=== PATIENT | female | born 1960 | race Caucasian/White ===

== ENCOUNTER 2016-06-04 21:14 | Inpatient (IN) | payer OTHER ==
[~2016-06-04] VITALS: Ht 165.1 cm; Wt 43.9 kg
--- NOTE | 2016-06-04 22:27 | ERA ---
ER Documentation Chief Complaint Date/Time DATE: 06/04/16 TIME: 22:26 Chief Complaint n/v/d x 5-6 days, LLQ abd pain and left hip pain (s/p lt hip sx 04/13/16) HPI The patient is a 55-year-old female, presenting to the ER because of nausea, vomiting, diarrhea, abdominal pain for 4 days. She vomited initially food than mucous. He denies hematochezia, hematemesis. The abdominal pain is 10/10, worse with vomiting and diarrhea. She denies dysuria, polyuria. She denies drinking or using any illicit drug, smokes a pack a day Past medical history: Seizure disorder, COPD, osteoporosis, anxiety Past surgical history: Left femur and left hip surgery ROS All systems reviewed and are negative except as per history of present illness. Medications Home Meds Reported Medications Hydrocodone/Acetaminophen (Bonham 5-325 Tablet) 1 Each Tablet, 1 EACH PO Q6 Y for PRN, TAB 06/04/16 Oxycodone Hcl* (IR) (Oxycodone Hcl*) 30 Mg Tablet, 30 MG PO Q4H Y for PAIN, TAB 06/04/16 Levetiracetam* (Keppra*) 1,000 Mg Tablet, 1000 MG PO BID, TAB 06/04/16 Allergies Allergies: Coded Allergies: Penicillins (Verified Allergy, Unknown, 06/04/16) PMhx/Soc History of Surgery: Yes (LEFT HIP REPLACEMENT SX 04/13/16) Anesthesia Reaction: No Hx Neurological Disorder: Yes (EPILEPSY) Hx Respiratory Disorders: Yes (COPD) Hx Cardiac Disorders: No Hx Psychiatric Problems: No Hx Miscellaneous Medical Probl: Yes (OSTEOPOROSIS) Hx Alcohol Use: Yes Hx Substance Use: No Hx Tobacco Use: Yes Smoking Status: Current every day smoker Physical Exam Vitals Vital Signs Date Time Temp Pulse Resp B/P Pulse Ox O2 Delivery O2 Flow Rate FiO2 06/05/16 01:23 98.0 88 20 142/91 97 Nasal Cannula 2.0 06/04/16 23:55 97.6 89 18 106/68 98 Room Air 06/04/16 21:20 97.0 76 18 117/70 99 Physical Exam Const: No acute distress. Head: Atraumatic. Eyes: Normal Conjunctiva. ENT: Normal External Ears, Nose and Mouth. Neck: Full range of motion. No meningismus. Resp: Clear to auscultation bilaterally. Cardio: Regular rate and rhythm, no murmurs. Abd: Soft, non distended, normal bowel sounds, diffuse moderate abdominal tenderness, no rigidity, rebound, CVA tenderness Skin: No petechiae or rashes. Back: No midline or flank tenderness. Ext: No cyanosis, or edema. Neur: Awake and alert. No focal deficit Psych: Normal Mood and Affect. Result Diagram: 06/04/16223906/04/162239 Results 24 hrs Laboratory Tests Test 06/04/16 21:00 06/04/16 22:40 06/04/16 22:54 06/04/16 23:45 Urine Amphetamines Screen Negative Urine Barbiturates Negative Urine Benzodiazepines Screen Negative Urine Cannabinoids Negative Urine Cocaine Screen Negative Urine Opiates Screen Negative Alanine Aminotransferase (ALT/SGPT) 38IU/L Albumin 3.4g/dl Albumin/Globulin Ratio 0.94 Alkaline Phosphatase 168IU/L Anion Gap 22 Aspartate Amino Transf (AST/SGOT) 65IU/L Basophils # 0.010^3/ul Basophils % 0.7% Blood Morphology Comment Blood Urea Nitrogen 4mg/dl Calcium Level 7.7mg/dl Carbon Dioxide Level 31mmol/L Chloride Level 97mmol/L Creatinine 0.47mg/dl Direct Bilirubin 0.00mg/dl Eosinophils # 0.210^3/ul Eosinophils % 2.9% Ethyl Alcohol Level 339.0mg/dl Globulin 3.60g/dl Glucose Level 66mg/dl Hematocrit 46.2% Hemoglobin 15.5g/dl Indirect Bilirubin 0.0mg/dl Lipase 300U/L Lymphocytes # 1.710^3/ul Lymphocytes % 28.4% Mean Corpuscular Hemoglobin 33.0pg Mean Corpuscular Hemoglobin Concent 33.5g/dl Mean Corpuscular Volume 98.5fl Mean Platelet Volume 6.6fl Monocytes # 0.510^3/ul Monocytes % 8.9% Neutrophils # 3.510^3/ul Neutrophils % 59.1% Nucleated Red Blood Cells # 0.010^3/ul Nucleated Red Blood Cells % 0.0/100WBC Platelet Count 23254^3/UL Potassium Level 2.7mmol/L Red Blood Count 4.6910^6/ul Red Cell Distribution Width 17.0% Sodium Level 147mmol/L Total Bilirubin 0.0mg/dl Total Protein 7.0g/dl White Blood Count 6.010^3/ul Bedside Urine Blood 2+ Bedside Urine Glucose (UA) Negative Bedside Urine Ketones (LAB) Negative Bedside Urine Leukocyte Esterase (L Negative Bedside Urine Nitrite (LAB) Negative Bedside Urine Protein (LAB) 1+ Bedside Urine pH (LAB) 6.0 Magnesium Level 1.5mg/dl Current Medications Medications (Trade) Dose Ordered Sig/Vickey Route PRN Reason Start Time Stop Time Status Last Admin Dose Admin Sodium Chloride (NS) 1,000 ml @ 1,000 mls/hr Q1H STAT IV 06/04/16 22:32 06/04/16 23:31 DC 06/04/16 23:11 Morphine Sulfate (morphine) 2 mg ONCE STAT IV 06/04/16 22:32 06/04/16 22:34 DC 06/04/16 23:11 Ondansetron HCl 4 mg 4 mg ONCE STAT IV 06/04/16 22:32 06/04/16 22:34 DC 06/04/16 23:11 Sodium Chloride 1,000 ml @ 1,000 mls/hr Q1H ONCE IV 06/05/16 00:00 06/05/16 00:59 DC 06/05/16 00:00 Potassium Chloride (KCl 40 MEQ/250 ML NS) 250 ml @ 62.5 mls/hr ONCE ONCE IVPB 06/05/16 00:00 06/05/16 00:03 DC Dextrose 50 ml 50 ml ONCE ONCE IV 06/05/16 00:00 06/05/16 00:01 DC 06/05/16 00:25 Ciprofloxacin/ Dextrose 200 ml @ 200 mls/hr ONCE ONCE IVPB 06/05/16 00:00 06/05/16 00:59 DC Potassium Chloride 40 meq/ Sodium Chloride 270 ml @ 67.5 mls/hr ONCE ONCE IV 06/05/16 00:05 06/05/16 04:04 06/05/16 00:25 Magnesium Sulfate (Magnesium Sulfate 2 Gm/50 ml) 50 ml @ 25 mls/hr ONCE ONCE IVPB 06/05/16 00:30 06/05/16 02:29 06/05/16 00:53 IV Flush (NS 3 ml) 3 ml PER PROTOCOL IV 06/05/16 01:30 Lorazepam (Ativan) 0.5 mg Q6H PRN IV ANXIETY 06/05/16 01:30 Ondansetron HCl (Zofran Inj) 4 mg Q6H PRN IV NAUSEA AND/OR VOMITING 06/05/16 01:30 Nitroglycerin (Nitroglycerin (Sl Tab) 0.4 Mg) 1 tab Q5M PRN SL CHEST PAIN 06/05/16 01:30 Acetaminophen (Tylenol Tab) 650 mg Q6H PRN PO PAIN LEVEL 1-3 OR FEVER 06/05/16 01:30 Morphine Sulfate (morphine) 2 mg Q4H PRN IV PAIN LEVEL 7-10 06/05/16 01:30 Pantoprazole (Protonix Tab) 40 mg DAILY@06 PO 06/05/16 06:00 Enoxaparin Sodium (Lovenox) 40 mg DAILY SC 06/05/16 09:00 Albuterol/ Ipratropium (Duoneb) 3 ml Q4H RESP THERAPY HHN 06/05/16 05:00 Albuterol/ Ipratropium 3 ml 3 ml Q2H RESP THERAPY PRN HHN SHORTNESS OF BREATH 06/05/16 01:30 Ciprofloxacin/ Dextrose 200 ml @ 200 mls/hr Q12 IVPB 06/05/16 09:00 Metronidazole (Flagyl 500 Mg (Pmx)) 100 ml @ 100 mls/hr Q8 IVPB 06/05/16 06:00 Levetiracetam (Keppra) 1,000 mg BID PO 06/05/16 09:00 UNV Procedures/[place] [id number] Radiology Main Line: [phone] DIAGNOSTIC IMAGING REPORT Patient: MARCELO LYNN : 1960 Age: 55 Sex: F MR #: [id number] DOS: 06/04/162231 Ordering MD: MACI CHRISTINE MD Location: E/R Room/Bed: PROCEDURE: CHEST - 1 VIEW CLINICAL INDICATION: 55-year-old female with chest/abdominal pain. TECHNIQUE: A single frontal AP upright view of the chest was performed portably. The images were reviewed on a PACS workstation. COMPARISON: CT abdomen/pelvis June 04, 2016. FINDINGS: The cardiomediastinal silhouette is within normal limits. The thoracic aortic arch is mildly calcified. Chronic lung changes are present. There is no evidence for an infiltrate. There is no evidence for congestive heart failure. There is no evidence for pneumothorax. There are old healed fracture deformities involving the right seventh, eighth and ninth ribs in the mid axillary line and left eighth and ninth ribs in the mid axillary line. IMPRESSION: 1. Calcified thoracic aortic arch. 2. Chronic lung changes. 3. Old bilateral rib fracture deformities. .Aravind Lewis MD, MD Date Time Electronically viewed and signed by .Aravind Lewis MD, MD on 06/04/2016 23:50 .M/ CC: MACI CHRISTINE MD [place] [id number] Radiology Main Line: [phone] DIAGNOSTIC IMAGING REPORT Patient: MARCELO LYNN : 1960 Age: 55 Sex: F MR #: [id number] DOS: 06/04/162 Ordering MD: MACI CHRISTINE MD Location: E/R Room/Bed: PROCEDURE: CT abdomen and pelvis without contrast. CLINICAL INDICATION: Abdominal pain left lower quadrant. History of left hip surgery 04/13/2016 TECHNIQUE: CT scan of the abdomen and pelvis without contrast was performed. Sagittal and coronal reformatted images were obtained from the axial source images. CTDI = 15.11 mGy; DLP = 693.44 mGy-cm COMPARISON: None available. FINDINGS: Visualized lower thorax: Multiple tree in bud opacities of the lower lobes suggest bronchiolitis with probable mild emphysema. A small bowel within the left lower lobe is noted. There is no evidence for pleural effusion. Liver, gallbladder, pancreas and spleen: Borderline hepatomegaly the cranial caudal dimension of the liver 19 cm. Severe low attenuation is consistent with fatty deposition, the hepatic contour is normal. There is no evidence for a liver mass or ductal dilatation. The gallbladder is contracted around multiple gallstones with there is no adjacent inflammation to suggest cholecystitis. No common bile duct abnormality is demonstrated. The pancreas is unremarkable. The spleen is normal in size. Adrenal glands and genitourinary system: The adrenal glands are normal bilaterally. The kidneys are normal and size, contour and attenuation with no evidence for masses, calculi or hydronephrosis. The ureters are unremarkable. No urinary bladder abnormality is demonstrated. The uterus appears atrophic. There is no evidence of ovarian or adnexal mass. No free fluid is present within the cul-de-sac. Gastrointestinal system: A tiny sliding hiatal hernia suggested remainder the study is unremarkable. There is no evidence of small bowel ileus or obstruction , some increased density in the appearance of residual enteric contrast media is seen in the distal ileum without wall thickening to suggest enteritis. The appendix and surrounding fat are within the limits of normal. There is diffuse thickening of the colonic wall with some fat deposition in the colonic mucosa seen from the cecum through the sigmoid colon, findings raising concern for diffuse nonspecific colitis. There is no evidence of pneumatosis in the fat surrounding the colon is preserved. The area of the rectum is unremarkable. There is no evidence for colitis or diverticulitis. Peritoneum, retroperitoneum, lymph nodes and vessels: The abdominal aorta is normal in caliber. There is moderate aortic and iliac system atherosclerotic calcification. The inferior vena cava is unremarkable. There is no evidence for adenopathy or mass. There is no ascites. Osseous structures and musculoskeletal findings: Intramedullary bobo and screw through an incompletely healed left proximal humerus fracture are present with some heterotopic ossification about the left hip. Levoscoliosis with the apex at L2 is noted with some degenerative disk disease and spondylosis of the lumbar spine. There is no evidence of acute fracture, lytic or blastic lesion. No muscular abnormality or soft tissue pathology is present. RPTAT:HJJR IMPRESSION: 1. Collapsed colonic lumen with mild colonic wall thickening from the cecum through the sigmoid segment raises concern for nonspecific colitis without pneumatosis or stranding of the adjacent colonic fat. There is no evidence of diverticulitis. 2. Heterotopic ossification with findings of partial but incomplete healing of the internally fixated proximal left femoral fracture. 3. Cholelithiasis without cholecystitis. 4. Borderline hepatomegaly with severe hepatic steatosis. 5. Multiple tree in bud opacities of the visualized lung bases likely bronchiolitis. 6. Atherosclerotic calcification of the aorta and iliac systems. Physician Jessi Date Time Electronically viewed and signed by Campos Salvador Physician on 06/04/2016 23:15 JR/ CC: MACI CHRISTINE MD MEDICAL MAKING DECISION: The patient is a 55-year-old female, presenting with acute colitis, acute alcohol intoxication, acute hypokalemia, acute magnesium, acute dehydration cholelithiasis. She was treated with 2 L normal saline for acute dehydration, morphine 2 mg IV for pain, Zofran 4 mg IV for nausea, potassium chloride 40 mEq IV for low potassium and 1 amp of D50 IV for acute hypoglycemia, Cipro IV and Flagyl IV for acute colitis and magnesium sulfate 2 mg IV for acute hypomagnesemia. The differential diagnoses considered include but are not limited to cholelithiasis, cholecystitis, cystitis, pancreatitis, hepatitis, gastritis, peptic ulcer disease, gastric ulcer, appendicitis, diverticulitis, cholangitis, choledocholithiasis, partial small bowel obstruction. Critical Care: Time: 35 minutes excluding all billable procedures. Treatments/Evaluations: Close monitoring and treatment of unstable vital signs, cardiorespiratory, and neurologic status, while maintaining tight balance of fluid, respiratory, and cardiac interventions. Departure Diagnosis: Primary Impression: Acute colitis Additional Impressions: Alcohol intoxication Hypokalemia Hypomagnesemia Dehydration Cholelithiasis Abnormal LFTs Condition: Stable Comments I discussed the findings with the patient. I discussed the patient with the hospitalist Dr. Romero who was made aware of the lab, the treatment, the patient condition. The patient is admitted to telemetry at 12:35 AM MACI CHRISTINE MD Jun 04, 2016 22:27
[2016-06-04] MEDS ORDERED: ONDANSETRON 4 MG INJ IV STA (22:32)
[2016-06-04] MEDS ORDERED: SOD CHLORIDE 0.9% 1,000 ML IV STA (22:32)
[2016-06-04] MEDS ORDERED: morphine 2 MG INJ IV STA (22:32)
[2016-06-04] MEDS ORDERED: LEVE100018 PO (22:42)
[2016-06-04] MEDS ORDERED: OXYC30TA PO (22:43)
[2016-06-04] MEDS ORDERED: HYDR-906 PO (22:43)
[2016-06-04 22:52] LABS: URINE BLOOD (Dip) POC 2+ (NEGATIVE)
[2016-06-04 23:05] LABS: BASOPHILS % 0.7 % (0.0-2.0); EOSINOPHILS # 0.2 10^3/ul (0.0-0.5); EOSINOPHILS % 2.9 % (0.0-7.0); HEMATOCRIT 46.2 % (37.0-47.0); HEMOGLOBIN 15.5 g/dl (12.0-16.0); LYMPHOCYTES # 1.7 10^3/ul (0.8-2.9); LYMPHOCYTES % 28.4 % (15.0-51.0); MEAN CORPUSCULAR HGB CONC 33.5 g/dl (32.0-37.0); MEAN CORPUSCULAR VOLUME 98.5 fl (82.0-101.0); MEAN PLATELET VOLUME 6.6 fl (7.4-10.4); MONOCYTE # 0.5 10^3/ul (0.3-0.9); MONOCYTES % 8.9 % (0.0-11.0); NEUTROPHIL # 3.5 10^3/ul (1.6-7.5); NEUTROPHILS % 59.1 % (39.0-77.0); PLATELET COUNT 308 10^3/UL (140-440); RED BLOOD COUNT 4.69 10^6/ul (4.20-5.40)
[2016-06-04 23:08] LABS: CONDITION 1; LH ANALYZER COMMENTS 1
[2016-06-04 23:10] LABS: ALBUMIN 3.4 g/dl (3.3-4.9)
[2016-06-04 23:13] LABS: CREATININE 0.47 mg/dl (0.44-1.00)
[2016-06-04 23:14] LABS: ALBUMIN/GLOBULIN RATIO 0.94; CALCIUM 7.7 mg/dl (8.4-10.2)
--- NOTE | 2016-06-04 23:16 | RADRPT ---
PROCEDURE: CT abdomen and pelvis without contrast. CLINICAL INDICATION: Abdominal pain left lower quadrant. History of left hip surgery 04/13/2016 TECHNIQUE: CT scan of the abdomen and pelvis without contrast was performed. Sagittal and coronal reformatted images were obtained from the axial source images. CTDI = 15.11 mGy; DLP = 693.44 mGy-c m COMPARISON: None available. FINDINGS: Visualized lower thorax: Multiple tree in bud opacities of the lower lobes suggest bronchiolitis wi th probable mild emphysema. A small bowel within the left lower lobe is noted. There is no evidenc e for pleural effusion. Liver, gallbladder, pancreas and spleen: Borderline hepatomegaly the cranial caudal dimension of th e liver 19 cm. Severe low attenuation is consistent with fatty deposition, the hepatic contour is n ormal. There is no evidence for a liver mass or ductal dilatation. The gallbladder is contracted a round multiple gallstones with there is no adjacent inflammation to suggest cholecystitis. No commo n bile duct abnormality is demonstrated. The pancreas is unremarkable. The spleen is normal in siz e. Adrenal glands and genitourinary system: The adrenal glands are normal bilaterally. The kidneys are normal and size, contour and attenuation with no evidence for masses, calculi or hydronephrosis. T he ureters are unremarkable. No urinary bladder abnormality is demonstrated. The uterus appears at rophic. There is no evidence of ovarian or adnexal mass. No free fluid is present within the cul-d e-sac. Gastrointestinal system: A tiny sliding hiatal hernia suggested remainder the study is unremarkable . There is no evidence of small bowel ileus or obstruction, some increased density in the appearanc e of residual enteric contrast media is seen in the distal ileum without wall thickening to suggest enteritis. The appendix and surrounding fat are within the limits of normal. There is diffuse thic kening of the colonic wall with some fat deposition in the colonic mucosa seen from the cecum throug h the sigmoid colon, findings raising concern for diffuse nonspecific colitis. There is no evidence of pneumatosis in the fat surrounding the colon is preserved. The area of the rectum is unremarkab le. There is no evidence for colitis or diverticulitis. Peritoneum, retroperitoneum, lymph nodes and vessels: The abdominal aorta is normal in caliber. The re is moderate aortic and iliac system atherosclerotic calcification. The inferior vena cava is unr emarkable. There is no evidence for adenopathy or mass. There is no ascites. Osseous structures and musculoskeletal findings: Intramedullary bobo and screw through an incomplete ly healed left proximal humerus fracture are present with some heterotopic ossification about the le ft hip. Levoscoliosis with the apex at L2 is noted with some degenerative disk disease and spondylo sis of the lumbar spine. There is no evidence of acute fracture, lytic or blastic lesion. No muscu lar abnormality or soft tissue pathology is present. RPTAT:HJJR IMPRESSION: 1. Collapsed colonic lumen with mild colonic wall thickening from the cecum through the sigmoid seg ment raises concern for nonspecific colitis without pneumatosis or stranding of the adjacent colonic fat. There is no evidence of diverticulitis. 2. Heterotopic ossification with findings of partial but incomplete healing of the internally fixat ed proximal left femoral fracture. 3. Cholelithiasis without cholecystitis. 4. Borderline hepatomegaly with severe hepatic steatosis. 5. Multiple tree in bud opacities of the visualized lung bases likely bronchiolitis. 6. Atherosclerotic calcification of the aorta and iliac systems. Physician Jessi Date Time Electronically viewed and signed by Physician Jessi on 06/04/2016 23:15 /
[2016-06-04 23:23] LABS: POTASSIUM 2.7 mmol/L (3.5-5.1)
[2016-06-04 23:47] LABS: BARBITURATES Negative (NEGATIVE)
[2016-06-04 23:50] LABS: BENZODIAZEPINES Negative (NEGATIVE); CANNABINOIDS Negative (NEGATIVE); COCAINE Negative (NEGATIVE); OPIATES Negative (NEGATIVE)
--- NOTE | 2016-06-04 23:50 | RADRPT ---
PROCEDURE: CHEST - 1 VIEW CLINICAL INDICATION: 55-year-old female with chest/abdominal pain. TECHNIQUE: A single frontal AP upright view of the chest was performed portably. The images were reviewed on a PACS workstation. COMPARISON: CT abdomen/pelvis June 04, 2016. FINDINGS: The cardiomediastinal silhouette is within normal limits. The thoracic aortic arch is mildly calcif ied. Chronic lung changes are present. There is no evidence for an infiltrate. There is no eviden ce for congestive heart failure. There is no evidence for pneumothorax. There are old healed fractur e deformities involving the right seventh, eighth and ninth ribs in the mid axillary line and left e ighth and ninth ribs in the mid axillary line. IMPRESSION: 1. Calcified thoracic aortic arch. 2. Chronic lung changes. 3. Old bilateral rib fracture deformities. .Aravind Lewis MD, Date Time Electronically viewed and signed by .Aravind Lewis MD, on 06/04/2016 23:50 .M/
[2016-06-05] VITALS (11 sets, daily range): BP systolic 118–145; BP diastolic 72–90; PULSE 91–105; RESP 17–22; TEMP 98; Ht 165.1 cm; Wt 43.9 kg
[2016-06-05] MEDS ORDERED: SOD CHLORIDE 0.9% 1,000 ML IV ONE
[2016-06-05] MEDS ORDERED: CIPROFLOXACIN 400MG/D5W 200 ML IVPB ONE
[2016-06-05] MEDS ORDERED: POTASSIUM CHLORIDE 250 ML IVPB ONE
[2016-06-05] MEDS ORDERED: DEXTROSE 50% 50 ML SYRINGE IV ONE
[2016-06-05] MEDS ORDERED: POTASSIUM CHLORIDE 40 MEQ in SOD CHLORIDE 0.9% 250 ML IV ONE (00:05)
[2016-06-05] MEDS ORDERED: MAGNESIUM SULFATE 2 GM/50 ML 50 ML IVPB ONE (00:30)
--- NOTE | 2016-06-05 01:22 | HP ---
Date/Time of Note Date/Time of Note DATE: 06/05/16 TIME: 01:13 Assessment/Plan VTE Prophylaxis VTE Prophylaxis Intervention: LMWH Assessment/Plan Assessment/Plan 55 yo female with a past medical history of ETOH abuse, COPD, anxiety, Seizure d /o, osteoporosis, who presents with 8 day history of worsening abdominal pain. 1. Abdominal pain - 2/2 to diffuse colitis - infectious vs chronic - will admit the patient to telemetry, continue with cipro/flagyl, IVF, clear liquids, check stool culture, ova/parasites, fecal leukocytes 2. ETOH abuse - social sciences lecturer consult, banana bag, prn ativan 3. Seizure d/o - keppra, seizure precautions 4. COPD - acute exacerbation - start duonebs prn 5. Anxiety - prn ativan 6. Osteoporosis - continue with os-bryan 7. hypokalemia - replete - intrinsic losses from diarrhea 8. hypomagnesemia - replete 9. GI ppx - protonix 10. DVT ppx - lovenox answered all of her questions. as per clinical course. this history and physical took greater then 45 minutes to complete HPI/ROS Admit Date/Time Admit Date/Time 06/05/2016, 1:13 am Hx of Present Illness 55 yo female with a past medical history of ETOH abuse, COPD, anxiety, Seizure d /o, osteoporosis, who presents with 8 day history of worsening abdominal pain. She states that her abdominal pain is diffuse, 10/10 in intensity, stabbing in nature, intermittent, associated with nausea, > 10 episodes of bilious vomitus, > 10 episodes of NB diarrhea, and fevers/chills. She has a lot of sick contacts at home. She also complains of a productive cough, with yellowish sputum. Complains of generalized weakness and malaise with some shortness of breath. No chest pain, dizziness, headaches, urinary irregularities, loss of consciousness , or other constitutional symptoms. Upon further questioning, the patient did have 8-9 beers today. ED course: pain medications, cipro/flagyl, magnesium, IVF ROS 14 point review of systems completed, please refer to HPI for any positive findings PMH/Family/Social Past Medical History seizure d/o, anxiety, osteoporosis, COPD Past Surgical History left and right arm repair Family History Significant Family History: COPD, lung disease Social History Alcohol Use: heavy (6-8 beers 2-3 x week) Smoking Status: Current every day smoker (1 ppd x 10 years) Drug Use: marijuana Exam/Review of Systems Vital Signs Vitals Vital Signs Date Time Temp Pulse Resp B/P Pulse Ox O2 Delivery O2 Flow Rate FiO2 06/04/16 23:55 97.6 89 18 106/68 98 Room Air Exam Exam Gen Claribel: mild to moderate distress 2/2 to abdominal pain, AAOx4 HEENT: NC/AT, PERRLA, EOMI, no pharyngeal erythema, no tonsillar exudates, no lymphadenopathy, no JVD, no carotid bruits, halitosis 2/2 ETOH NECK: supple, no thyromegaly THORAX: symmetrical, no obvious deformities, barrel chest CV: S1S2, RRR, no M/G/R Lungs: scattered rhonchi with inspiratory/expiratory wheezing, no crackles appreciated Abd: soft, TTP diffusely/ND, +hyperactive BS, no rebound, no guarding, neg HSM EXT: no edema, no ecchymosis, no clubbing, FROM Neuro: CN II-XII grossly intact, no focal deficits Psych: fair mood and affect Skin: C/D/I Labs Result Diagram: 06/04/16223906/04/162239 Medications Medications Current Medications Potassium Chloride 40 meq/ Sodium Chloride 270 ml @ 67.5 mls/hr ONCE ONCE IV Last administered on 06/05/16 00:25; Admin Dose 67.5 MLS/HR; Start 06/05/16 at 00:05; Stop 06/05/16 at 04:04 Magnesium Sulfate (Magnesium Sulfate 2 Gm/50 ml) 50 ml @ 25 mls/hr ONCE ONCE IVPB Last administered on 06/05/16 00:53; Admin Dose 25 MLS/HR; Start at 00:30; Stop 06/05/16 at 02:[address] abd/pelvis IMPRESSION: 1. Collapsed colonic lumen with mild colonic wall thickening from the cecum through the sigmoid segment raises concern for nonspecific colitis without pneumatosis or stranding of the adjacent colonic fat. There is no evidence of diverticulitis. 2. Heterotopic ossification with findings of partial but incomplete healing of the internally fixated proximal left femoral fracture. 3. Cholelithiasis without cholecystitis. 4. Borderline hepatomegaly with severe hepatic steatosis. 5. Multiple tree in bud opacities of the visualized lung bases likely bronchiolitis. 6. Atherosclerotic calcification of the aorta and iliac systems. CXR IMPRESSION: 1. Calcified thoracic aortic arch. 2. Chronic lung changes. 3. Old bilateral rib fracture deformities. MARY FAY MD Jun 05, 2016 01:22
[2016-06-05] MEDS ORDERED: ACETAMINOPHEN 325 MG TAB PO PRN (01:30)
[2016-06-05] MEDS ORDERED: NACL 0.9% 3 ML SYG IV SCH (01:30)
[2016-06-05] MEDS ORDERED: NITROGLYCERIN (SL) 0.4 MG TAB SL PRN (01:30)
[2016-06-05] MEDS ORDERED: ALBUTEROL/IPRATROPIUM (NEB) 3 ML AMP HHN PRN (01:30)
[2016-06-05] MEDS: morphine 2 MG INJ IV PRN ×5 (02:37→22:55)
[2016-06-05] MEDS: PANTOPRAZOLE (EC) 40 MG TAB PO SCH ×2 (05:54→09:05)
[2016-06-05] MEDS: metroNIDAZOLE 500 MG/NS (PMX) 100 ML IVPB SCH ×3 (05:54→21:45)
[2016-06-05] MEDS: ONDANSETRON 4 MG INJ IV PRN ×2 (08:00→18:54)
[2016-06-05] MEDS: LEVETIRACETAM 500 MG TAB PO SCH ×2 (09:05→21:40)
[2016-06-05] MEDS: CIPROFLOXACIN 400MG/D5W 200 ML IVPB SCH ×2 (09:06→21:45)
[2016-06-05] MEDS: ENOXAPARIN 40 MG/0.4 ML SYG SC SCH (09:15)
[2016-06-05] MEDS: ALBUTEROL/IPRATROPIUM (NEB) 3 ML AMP HHN SCH ×4 (09:46→21:54)
[2016-06-05 10:20] LABS: CREATINE KINASE 47 IU/L (23-200)
[2016-06-05 10:25] LABS: CHOL/HDL RATIO 1.7 RATIO
[2016-06-05 10:29] LABS: CK-MB 1.75 ng/ml (0.0-2.4)
[2016-06-05 10:42] LABS: TROPONIN-I < 0.010 ng/ml (0.00-0.12)
[2016-06-05] MEDS ORDERED: METHYLPREDNISOLONE 125 MG INJ IV ONE (12:00)
[2016-06-05] MEDS ORDERED: FUROSEMIDE 20 MG INJ IV ONE (12:00)
[2016-06-05] MEDS: SALMETEROL/FLUTICASONE 250/50 INHA INH SCH ×2 (13:27→21:45)
[2016-06-05] MEDS ORDERED: HYDROCODONE/APAP (7.5/325) TAB PO PRN (14:30)
[2016-06-05] MEDS: HYDROCODONE/APAP (5/325) TAB PO PRN ×2 (15:17→21:41)
[2016-06-05] MEDS: MULTIVITAMINS 10 ML, THIAMINE 100 MG, FOLIC ACID 1 MG in SOD CHLORIDE 0.9% 1,000 ML IVPB SCH (16:02)
[2016-06-05 18:09] LABS: THYROID STIMULATING HORMONE 2.2 MIU/L (0.465-4.680)
[2016-06-05] MEDS: METHYLPREDNISOLONE 125 MG INJ IV SCH (21:42)
[2016-06-05] MEDS: LORAZEPAM 2 MG INJ IV PRN (22:53)
[2016-06-06] VITALS (12 sets, daily range): BP systolic 126–138; BP diastolic 77–84; PULSE 90–101; RESP 15–20
[2016-06-06] MEDS: ALBUTEROL/IPRATROPIUM (NEB) 3 ML AMP HHN SCH ×6 (01:47→21:57)
[2016-06-06] MEDS: morphine 2 MG INJ IV PRN ×2 (04:27→09:18)
[2016-06-06] MEDS: ONDANSETRON 4 MG INJ IV PRN ×2 (04:27→11:55)
[2016-06-06 06:20] LABS: ADD SCAN DIFF NO
[2016-06-06 06:42] LABS: BASOPHILS % 0.2 % (0.0-2.0); HEMATOCRIT 36.8 % (37.0-47.0); HEMOGLOBIN 12.2 g/dl (12.0-16.0); LYMPHOCYTES # 0.7 10^3/ul (0.8-2.9); MEAN CORPUSCULAR HEMOGLOBIN 32.5 pg (29.0-33.0); MEAN CORPUSCULAR HGB CONC 33.2 g/dl (32.0-37.0); MEAN CORPUSCULAR VOLUME 98.1 fl (82.0-101.0); MONOCYTE # 0.6 10^3/ul (0.3-0.9); MONOCYTES % 11.7 % (0.0-11.0); NEUTROPHIL # 3.5 10^3/ul (1.6-7.5); NEUTROPHILS % 73.7 % (39.0-77.0); PLATELET COUNT 236 10^3/UL (140-415); RED BLOOD COUNT 3.75 10^6/ul (4.20-5.40); RED CELL DISTRIBUTION WIDTH 15.2 % (11.5-14.5); WHITE BLOOD COUNT 4.8 10^3/ul (4.8-10.8)
[2016-06-06] MEDS: METHYLPREDNISOLONE 125 MG INJ IV SCH ×3 (06:49→21:59)
[2016-06-06] MEDS: metroNIDAZOLE 500 MG/NS (PMX) 100 ML IVPB SCH ×3 (06:49→21:59)
[2016-06-06 06:53] LABS: CREATININE 0.4 mg/dl (0.44-1.00)
[2016-06-06 06:54] LABS: CALCIUM 7.5 mg/dl (8.4-10.2)
[2016-06-06] MEDS: LEVETIRACETAM 500 MG TAB PO SCH ×2 (09:20→21:59)
[2016-06-06] MEDS: MULTIVITAMINS 10 ML, THIAMINE 100 MG, FOLIC ACID 1 MG in SOD CHLORIDE 0.9% 1,000 ML IVPB SCH (09:20)
[2016-06-06] MEDS: CIPROFLOXACIN 400MG/D5W 200 ML IVPB SCH ×2 (09:20→21:59)
[2016-06-06] MEDS: SALMETEROL/FLUTICASONE 250/50 INHA INH SCH ×2 (09:21→22:41)
[2016-06-06] MEDS: ENOXAPARIN 40 MG/0.4 ML SYG SC SCH (09:30)
[2016-06-06] MEDS: HYDROmorphONE 1 MG/ML SYG IV PRN ×4 (12:58→22:08)
[2016-06-06] MEDS: LORAZEPAM 2 MG INJ IV PRN ×2 (12:58→19:07)
[2016-06-06] MEDS ORDERED: ACETAMINOPHEN 1000MG/100ML IV 100 ML IVPB ONE (13:00)
[2016-06-06] MEDS: METHYLNALTREXONE 12 MG/0.6 ML VIAL SC SCH (13:48)
--- NOTE | 2016-06-06 17:03 | PN ---
Date/Time of Note Date/Time of Note DATE: 06/06/16 TIME: 16:59 Assessment/Plan VTE Prophylaxis VTE Prophylaxis Intervention: heparin Lines/Catheters IV Catheter Type (from Nrsg): Peripheral IV Assessment/Plan Assessment/Plan 55 yo female with a past medical history of ETOH abuse, COPD, anxiety, Seizure d /o, osteoporosis, who presents with 8 day history of worsening abdominal pain. 1. Abdominal pain - 2/2 to diffuse colitis 2. ETOH abuse 3. Seizure d/o 4. COPD - acute exacerbation - improved 5. Chronic Pain and Anxiety d/o 6. Osteoporosis PLAN: * Continue IV abx * Continue IVF * Advance diet to clears / advance in am if tolerated * Continue duonebs / intravenous steroids * PT eval * GI ppx - protonix * DVT ppx - lovenox Subjective 24 Hr Interval Summary Free Text/Dictation abd pain and nausea improved Patient asking for food Exam/Review of Systems Vital Signs Vitals Vital Signs Date Time Temp Pulse Resp B/P Pulse Ox O2 Delivery O2 Flow Rate FiO2 06/06/16 15:56 98.3 95 19 127/80 98 06/06/16 12:24 Nasal Cannula 3.0 06/05/16 17:02 32 Intake and Output 06/05/16 06/05/16 06/06/16 15:00 23:00 07:00 Intake Total 820 ml 350 ml Output Total 200 ml Balance 620 ml 350 ml Exam Constitutional: alert, frail, oriented Psych: anxiety Head: normocephalic Eyes: PERRL Respiratory: diminished breath sounds Cardiovascular: regular rate and rhythm, No murmurs/extra sounds Gastrointestinal: bowel sounds, non-tender, soft Extremities: No edema Neurological: lethargic Results Result Diagram: 06/06/16 0540 06/06/16 0540 Results 24 hrs Laboratory Tests Test 06/06/16 05:40 Anion Gap 15 # Basophils # 0.0 Basophils % 0.2 Blood Urea Nitrogen 8 Calcium Level 7.5 L Carbon Dioxide Level 29 Chloride Level 98 Creatinine 0.40 L Eosinophils # 0.0 Eosinophils % 0.0 Glucose Level 178 # Hematocrit 36.8 #L Hemoglobin 12.2 # Lymphocytes # 0.7 L Lymphocytes % 14.0 L Magnesium Level 1.3 L Mean Corpuscular Hemoglobin 32.5 Mean Corpuscular Hemoglobin Concent 33.2 Mean Corpuscular Volume 98.1 Mean Platelet Volume 9.0 # Monocytes # 0.6 Monocytes % 11.7 H Neutrophils # 3.5 Neutrophils % 73.7 Nucleated Red Blood Cells # 0.0 Nucleated Red Blood Cells % 0.0 Platelet Count 236 Potassium Level 3.0 L Red Blood Count 3.75 #L Red Cell Distribution Width 15.2 H Sodium Level 139 White Blood Count 4.8 Medications Medications Current Medications Lorazepam (Ativan) 0.5 mg Q6H PRN IV ANXIETY Last administered on 06/06/16 12: 58; Admin Dose 0.5 MG; Start 06/05/16 at 01:30 Ondansetron HCl (Zofran Inj) 4 mg Q6H PRN IV NAUSEA AND/OR VOMITING Last administered on 06/06/16 11:55; Admin Dose 4 MG; Start 06/05/16 at 01:30 Nitroglycerin (Nitroglycerin (Sl Tab) 0.4 Mg) 1 tab Q5M PRN SL CHEST PAIN; Start 06/05/16 at 01:30 Acetaminophen (Tylenol Tab) 650 mg Q6H PRN PO PAIN LEVEL 1-3 OR FEVER; Start at 01:30 Pantoprazole (Protonix Tab) 40 mg DAILY@06 PO Last administered on 06/05/16 09 :05; Admin Dose 40 MG; Start 06/05/16 at 06:00 Enoxaparin Sodium 40 mg 40 mg DAILY SC Last administered on 06/06/16 09:30; Admin Dose 40 MG; Start 06/05/16 at 09:00 Ciprofloxacin/ Dextrose 200 ml @ 200 mls/hr Q12 IVPB Last administered on 06/06 09:20; Admin Dose 200 MLS/HR; Start 06/05/16 at 09:00 Metronidazole (Flagyl 500 Mg (Pmx)) 100 ml @ 100 mls/hr Q8 IVPB Last administered on 06/06/16 15:01; Admin Dose 100 MLS/HR; Start 06/05/16 at 06:00 Levetiracetam (Keppra) 1,000 mg BID PO Last administered on 06/06/16 09:20; Admin Dose 1,000 MG; Start 06/05/16 at 09:00 Salmeterol Xinafoate/ Fluticasone (Advair 250/50 Diskus) 1 inh BID INH Last administered on 06/06/16 09:21; Admin Dose 1 INH; Start 06/05/16 at 12:00 Methylprednisolone Sodium Succinate 60 mg 60 mg Q8 IV Last administered on 06/06 15:02; Admin Dose 60 MG; Start 06/05/16 at 22:00 Multivitamins/ Thiamine HCl/ Folic Acid/Sodium Chloride (Mvi-12 Adult/ Vitamin B1/Folic Acid/NS) 1,011.2 ml @ 80 mls/hr DAILY@09 IVPB Last administered on 09:20; Admin Dose 80 MLS/HR; Start 06/05/16 at 15:00 Methylnaltrexone [place] (Relistor) 12 mg Q2D@09 SC Last administered on 13:48; Admin Dose 12 MG; Start 06/06/16 at 13:00 Hydromorphone HCl (Dilaudid) 0.5 mg Q3H PRN IV PAIN Last administered on 16:01; Admin Dose 0.5 MG; Start 06/06/16 at 12:30 FREDI CLEMENTE Jun 06, 2016 17:03
[2016-06-07] VITALS (12 sets, daily range): BP systolic 117–158; BP diastolic 77–94; PULSE 89–99; RESP 15–19
[2016-06-07] MEDS: HYDROmorphONE 1 MG/ML SYG IV PRN ×9 (00:40→23:12)
[2016-06-07] MEDS: LORAZEPAM 2 MG INJ IV PRN ×3 (01:09→20:02)
[2016-06-07] MEDS: ALBUTEROL/IPRATROPIUM (NEB) 3 ML AMP HHN SCH (02:25)
[2016-06-07] MEDS: METHYLPREDNISOLONE 125 MG INJ IV SCH ×3 (06:44→21:46)
[2016-06-07] MEDS: PANTOPRAZOLE (EC) 40 MG TAB PO SCH (06:44)
[2016-06-07] MEDS: metroNIDAZOLE 500 MG/NS (PMX) 100 ML IVPB SCH ×2 (06:45→13:10)
[2016-06-07 07:08] LABS: HEMATOCRIT 37.2 % (37.0-47.0); HEMOGLOBIN 11.9 g/dl (12.0-16.0)
[2016-06-07] MEDS: LEVETIRACETAM 500 MG TAB PO SCH ×2 (09:12→20:02)
[2016-06-07] MEDS: CIPROFLOXACIN 400MG/D5W 200 ML IVPB SCH ×2 (09:12→23:44)
[2016-06-07] MEDS: SALMETEROL/FLUTICASONE 250/50 INHA INH SCH ×2 (09:12→21:45)
[2016-06-07] MEDS: MULTIVITAMINS 10 ML, THIAMINE 100 MG, FOLIC ACID 1 MG in SOD CHLORIDE 0.9% 1,000 ML IVPB SCH (09:12)
[2016-06-07] MEDS: ENOXAPARIN 40 MG/0.4 ML SYG SC SCH (09:30)
[2016-06-07] MEDS ORDERED: MAGNESIUM SULFATE 3 GM in SOD CHLORIDE 0.9% 100 ML IVPB ONE (13:30)
--- NOTE | 2016-06-07 13:45 | PDOCDIS ---
Discharge Instructions CONDITION Patient Condition: Good HOME CARE INSTRUCTIONS: Special Diet: Soft ACTIVITY: Activity Restrictions: Special Program FOLLOW UP/APPOINTMENTS Appointments Follow-up with healthcare partner contracted etl informatica architect as outpatient ADILIA ROLAND MD Jun 07, 2016 13:45
[2016-06-07] MEDS ORDERED: SOD CHLORIDE 0.9% IVPB ONE (14:30)
[2016-06-07] MEDS ORDERED: MAGNESIUM SULFATE IVPB ONE (14:30)
[2016-06-07] MEDS ORDERED: POTASSIUM CHLORIDE IVPB ONE (14:30)
[2016-06-07 14:31] LABS: HEMATOCRIT 38.7 % (37.0-47.0); HEMOGLOBIN 12.5 g/dl (12.0-16.0)
--- NOTE | 2016-06-07 16:11 | DS ---
DATE OF ADMISSION: 06/05/2016 DATE OF DISCHARGE: 06/07/2016 DATA CAPTURE SPECIALIST: None. DIAGNOSES: 1. Abdominal pain secondary to diffuse colitis. The patient will be discharged on ciprofloxacin an d Flagyl. Follow up with internal grinding machine operator as outpatient. 2. History of alcohol abuse. Discharge on Ativan, multivitamin, thiamine, and folic acid. 3. Seizure disorder. Continue Keppra. 4. Chronic obstructive pulmonary disease. Discharge on prednisone, Advair breathing treatment. 5. Chronic pain and anxiety disorder. Continue pain medication. 7. History of gastritis. Continue proton pump inhibitor. MEDICATIONS: 1. Tylenol. 2. Ciprofloxacin. 3. Oxycodone. 4. Keppra. 5. Ativan. 6. Magnesium oxide. 7. Prednisone 20 mg. 8. Flagyl 500 mg 9. Folic acid 1 mg 10. Thiamine 100 mg. 11. Multivitamin 1 tab. 12. Zofran 4 mg. 13. Protonix 40 mg. DVT PROPHYLAXIS: Sequential compression devices. INSTRUCTIONS: 1. Follow up with internal grinding machine operator in 1 to 2 weeks. 2. Follow up with orthopedic surgeon in 2 to 3 weeks. 3. PT, OT evaluation and treatment. DIET: Soft, advance as tolerated. DISPOSITION: To [facility] facility for physical therapy. HOSPITAL COURSE: This is a 55-year-old female with past medical history of alcohol abuse, COPD, anx iety, seizure disorder, osteoporosis, recent femoral fracture status post ORIF, who presented to [facility] having 8-day history with abdominal pain, 10/10, stabbing in nature, inter mittent, associated with nausea and vomiting, no diarrhea, generalized weakness. The patient stated that she drinks about 8 to [address] abdomen and pelvis was obtained which demonstrated mild colonic wall thickening from cecum to the sigmoid segment, which raises concern of nonsp ecific colitis without pneumonitis or stranding of the adjacent colonic fat. There is no evidence o f diverticulitis. Cholelithiasis without cholecystitis. Borderline hepatomegaly with severe hepati c steatosis. Multiple tree-in-bud opacities in visualized lung bases, likely broncholithiasis. The patient was started on ciprofloxacin and Flagyl, also on a banana bag, Ativan, and pain medication. For her history of seizure disorder, the patient was continued on Keppra. The patient's hemoglobi n and hematocrit have been found to be stable. The patient was placed on ferrous sulfate, Protonix. For her history of alcoholism, patient was educated and cessation was advised. The patient was al so placed on banana bag, Ativan. The patient has been placed on full liquid diet and has been jose ating without any nausea, vomiting, diarrhea. PHYSICAL EXAMINATION: VITAL SIGNS: Her vitals have been stable with temperature of 98.2, pulse 98, respiratory rate 19, b lood pressure 144/84, oxygen saturation 98% in room air. GENERAL: At this time, patient is sitting on the bed comfortably without any distress. She is awak e, alert, oriented. She is able to answer my questions properly. EYES AND ENT: Conjunctivae and lids are normal. Pupils are normal. Extraocular normal. NECK: Supple. Trachea is midline. LUNGS: Clear to auscultation bilaterally. CARDIOVASCULAR: Normal S1, S2. Regular rhythm and rate. ABDOMEN: Soft, nontender, nondistended. Bowel sounds present. No guarding, rebound. GENITOURINARY: Deferred. MUSCULOSKELETAL: Upper extremity within normal limits. Left lower extremity: The surgical site is healing well. Minimal erythema, no evidence of infection. NEUROLOGIC: The patient is awake, alert, oriented. I have contacted the correctional counselor/case manager for [facility] facility placement. The patient will need to follow up with internal grinding machine operator as outpatient after her course of antibiotic has finished. Dictated By: ADILIA ROLAND MD PN/NTS Conf#: [id number] DID#: [id number] CC: [facility];*EndCC*
[2016-06-07] MEDS ORDERED: POTASSIUM CHLORIDE 30 MEQ in SOD CHLORIDE 0.9% 150 ML IVPB SCH (19:30)
[2016-06-08] VITALS (8 sets, daily range): BP systolic 126–164; BP diastolic 83–102; PULSE 82–88; RESP 18–20
[2016-06-08] MEDS: metroNIDAZOLE 500 MG/NS (PMX) 100 ML IVPB SCH ×3 (00:57→15:14)
[2016-06-08] MEDS: LORAZEPAM 2 MG INJ IV PRN (02:07)
[2016-06-08] MEDS: HYDROmorphONE 1 MG/ML SYG IV PRN ×4 (02:46→12:03)
[2016-06-08] MEDS: PANTOPRAZOLE (EC) 40 MG TAB PO SCH (05:37)
[2016-06-08] MEDS: METHYLPREDNISOLONE 125 MG INJ IV SCH ×2 (05:37→15:02)
[2016-06-08] MEDS: LEVETIRACETAM 500 MG TAB PO SCH (08:44)
[2016-06-08] MEDS: CIPROFLOXACIN 400MG/D5W 200 ML IVPB SCH (08:44)
[2016-06-08] MEDS: SALMETEROL/FLUTICASONE 250/50 INHA INH SCH (08:44)
[2016-06-08] MEDS: ENOXAPARIN 40 MG/0.4 ML SYG SC SCH (08:45)
[2016-06-08] MEDS: MULTIVITAMINS 10 ML, THIAMINE 100 MG, FOLIC ACID 1 MG in SOD CHLORIDE 0.9% 1,000 ML IVPB SCH (08:54)
[2016-06-08] MEDS: METHYLNALTREXONE 12 MG/0.6 ML VIAL SC SCH (10:19)
--- NOTE | 2016-06-08 12:22 | DS ---
Date/Time of Note Date/Time of Note DATE: 06/08/16 TIME: 12:16 Discharge Summary Admission/Discharge Info Admit Date/Time Jun 05, 2016 at 00:39 Discharge Date/Time 06/09/16 Final Diagnosis DIAGNOSES: 1. Abdominal pain secondary to diffuse colitis. The patient will be discharged on ciprofloxacin and Flagyl. Follow up with machine hoop maker helper as outpatient. 2. History of alcohol abuse. Discharge on Ativan, multivitamin, thiamine, and folic acid. 3. Seizure disorder. Continue Keppra. 4. Chronic obstructive pulmonary disease. Discharge on prednisone, Advair breathing treatment. 5. Chronic pain and anxiety disorder. Continue pain medication. 7. History of gastritis. Continue proton pump inhibitor. 8. Hypokalemia. Repleted 9. Hypomagnesemia. Likely secondary to history of alcohol abuse, repleted Patient Condition: Good Hx of Present Illness 55 yo female with a past medical history of ETOH abuse, COPD, anxiety, Seizure d /o, osteoporosis, who presents with 8 day history of worsening abdominal pain. She states that her abdominal pain is diffuse, 10/10 in intensity, stabbing in nature, intermittent, associated with nausea, > 10 episodes of bilious vomitus, > 10 episodes of NB diarrhea, and fevers/chills. She has a lot of sick contacts at home. She also complains of a productive cough, with yellowish sputum. Complains of generalized weakness and malaise with some shortness of breath. No chest pain, dizziness, headaches, urinary irregularities, loss of consciousness , or other constitutional symptoms. Upon further questioning, the patient did have 8-9 beers today. ED course: pain medications, cipro/flagyl, magnesium, IVF Hospital Course This is an addendum for discharge summary which was done by me on 06/07/2016 Patient discharge was held secondary to BLS ride to [facility] facility and not having authorization by the insurance company. Patient has been continued on IV fluids, ciprofloxacin and Flagyl. The patient has been able to tolerate oral intake without any difficulty. She has been able to ambulate without any discomfort. There has not been any evidence of lower GI bleed or change in the color of stool. Physical examination: General: The patient is well-developed, Not in acute distress. HEENT: Atraumatic, normocephalic. The pupils are equal and round . Lungs: Clear to auscultation bilaterally Heart: Normal S1-S2, Regular rhythm and rate. Abdomen: Soft , nontender, nondistended , bowel sounds are present. Extremities: Normal to inspection, no edema no cyanosis Neurologic: Normal mental status,The patient is awake, alert and oriented . Patient continues to request pain medication around the clock. I had a lengthy talk with the patient regarding her alcohol consumption habit and the risk of alcohol consumption which may lead to worsening of her abdominal discomfort, gastritis, liver disease and possible . Patient understands the risk and is planning to discontinue alcohol intake. Instruction regarding follow-up with machine hoop maker helper has been explained to the patient. Patient will need to finish her course of IV and oral antibiotics at [facility] facility and status post the course of the antibiotics patient will need to follow up with machine hoop maker helper for possible colonoscopy and endoscopy as outpatient. Condition at time of discharge stable Diet: Soft advance as tolerated Follow up with machine hoop maker helper in 2-3 weeks Home Meds Reported Medications Oxycodone Hcl* (IR) (Oxycodone Hcl*) 30 Mg Tablet, 30 MG PO Q4H Y for PAIN, TAB 06/04/16 Levetiracetam* (Keppra*) 1,000 Mg Tablet, 1000 MG PO BID, TAB 06/04/16 Discontinued Reported Medications Hydrocodone/Acetaminophen ([place] 5-325 Tablet) 1 Each Tablet, 1 EACH PO Q6 Y for PRN, TAB 06/04/16 Pending Labs Laboratory Tests Test 06/07/16 14:10 Hematocrit 38.7% (37.0-47.0) Hemoglobin 12.5g/dl (12.0-16.0) ADILIA ROLAND MD Jun 08, 2016 12:22
== END 2016-06-08 15:50 | DRG 392 ==
LOC: E/R 21:14 → TEL 06-05 00:39
PROVIDERS: ADMIT Student in an Organized Health Care Education/Training Program; ATTEND Student in an Organized Health Care Education/Training Program
DX: K52.9 Noninfective gastroenteritis and colitis, unspecified (principal); E83.42 Hypomagnesemia; E87.6 Hypokalemia; E86.0 Dehydration; F10.129 Alcohol abuse with intoxication, unspecified; Z72.0 Tobacco use; Z96.642 Presence of left artificial hip joint; J44.9 Chronic obstructive pulmonary disease, unspecified; G40.909 Epilepsy, unspecified, not intractable, without status epilepticus; M81.0 Age-related osteoporosis without current pathological fracture; F41.9 Anxiety disorder, unspecified; Y90.8 Blood alcohol level of 240 mg/100 ml or more
CPT/HCPCS: 36415; 71010; 74176; 80048; 80053; 80061; 80306; 80307; 81003; 82270; 82550; 82553; 83036; 83690; 83735; 84443; 84484; 85014; 85018; 85025; 87045; 87075; 87177; 87205; 94640; 94664; 96374; 96375; 96376; J1940; J0131; J0744; J1170; J1650; J2060; J2270; J2405; J2930; J3411; J3475; J3480; J7030; J7050

== ENCOUNTER → 2016-11-12 | Outpatient (CLI) | payer MEDICARE ==
[~2016-11-12] MED LIST: LEVE100018 PO; OXYC30TA PO
--- NOTE | 2016-11-12 16:11 | RADRPT ---
PROCEDURE: Video-fluoroscopy swallowing study. CLINICAL INDICATION: Dysphagia. TECHNIQUE: Fluoroscopic guided video swallowing study was done in conjunction with the speech ther apist. The study was confined to the oral, pharyngeal, and cervical phases of the swallowing mechani sm. 1.8 minutes of fluoroscopy time was used. 37 series of images were obtained. COMPARISON: No prior study is available for comparison. FINDINGS: There is aspiration during swallowing. IMPRESSION: 1. Aspiration during swallowing. 2. Please refer to the speech therapist's recommendations for future feedings. RPTAT: QQ .Jose Saini MD, Date Time Electronically viewed and signed by .Jose Saini MD, on 11/12/2016 16:11 .R/
== END | disposition home or self-care (01) ==
LOC: RAD 12:08
PROVIDERS: ATTEND Internal Medicine Pulmonary Disease
DX: R13.10 Dysphagia, unspecified (principal)
CPT/HCPCS: 74230; 92611; G8996; G8997; G8998; 92506

== ENCOUNTER 2016-12-04 11:43 | Emergency (ER) | payer MEDICARE ==
[~2016-12-04] VITALS: Wt 50.0 kg
[2016-12-04] MEDS ORDERED: SODIUM CHLORIDE 0.9% 1L BAG IV* STA (12:13)
[2016-12-04] MEDS ORDERED: CEFEPIME 2GM/50 ML (PMX) 50 ML IVPB STA (12:13)
[2016-12-04] MEDS ORDERED: ALBUTEROL/IPRATROPIUM (NEB) 3 ML AMP HHN STA (12:15)
--- NOTE | 2016-12-04 12:41 | ERA ---
ER Documentation Chief Complaint Date/Time DATE: 12/04/16 TIME: 12:37 Chief Complaint SOB WITH LOW O2 SATS TODAY. NO CP. MODERATED RESPIRATORY DISTRESS ON VENT HPI Patient is a 56-year-old female with COPD and tracheostomy due to respiratory failure, with pneumonia currently on treatment at convalescent home who presents to the ER with gradual onset, constant, progressive shortness of breath for 2 days. She was found to be struggling to breathe at the convalescent home and was sent to the ER. Prior to sending her to the ER, deep suctioning was performed. The patient did not improve at that time. The patient complains that her chest feels tight, and indicates that it feels like a COPD exacerbation. She reports having subjective fevers over the last few days. She reports being on antibiotics. She denies back pain. She states that she feels like there is mucus that she is having difficulty expectorating. She is not sure if she is on blood thinners. She denies dark stool. She has history of anemia. ROS All systems reviewed and are negative except as per history of present illness. Medications Home Meds Reported Medications Acetaminophen (TYLENOL 325 MG TAB) 325 Mg Tab, 650 MG GTB ONCE, TAB 12/04/16 Acetaminophen (TYLENOL 325 MG TAB) 325 Mg Tab, 650 MG GTB ONCE, TAB 12/04/16 Omeprazole* (Omeprazole*) 20 Mg Capsule.dr, 20 MG GTB BID, #60 CAP 12/04/16 Levofloxacin* (Levaquin*) 750 Mg Tablet, 750 MG GTB DAILY, TAB STARTED 12-04-16 STOP 12-11-16 12/04/16 Acetaminophen* (Acetaminophen*) 650 Mg Tablet, 650 MG GTB Q4 Y for PAIN AND OR ELEVATED TEMP, #30 TAB 12/04/16 Discontinued Reported Medications Oxycodone Hcl* (IR) (Oxycodone Hcl*) 30 Mg Tablet, 30 MG PO Q4H Y for PAIN, TAB 06/04/16 Levetiracetam* (Keppra*) 1,000 Mg Tablet, 1000 MG PO BID, TAB 06/04/16 Allergies Allergies: Coded Allergies: Penicillins (Verified Allergy, Unknown, 12/04/16) PMhx/Soc Past medical history: Chronic anemia, COPD, hepatitis C, chronic respiratory failure, atrial fibrillation Past surgical history: Tracheostomy, PEG tube History of Surgery: Yes (Left hip surgery) Anesthesia Reaction: No Hx Neurological Disorder: Yes (Epilepsy) Hx Respiratory Disorders: Yes (COPD) Hx Cardiac Disorders: No Hx Miscellaneous Medical Probl: No (CHRONIC VENT PATIENT) Hx Alcohol Use: Yes Hx Tobacco Use: Yes Smoking Status: Former smoker FmHx Family History: No coronary disease, No diabetes Physical Exam Vitals Vital Signs Date Time Temp Pulse Resp B/P Pulse Ox O2 Delivery O2 Flow Rate FiO2 12/04/16 17:15 108 16 98 35 12/04/16 15:45 115 16 97 35 12/04/16 14:10 98.6 96 16 104/76 100 Mechanical Ventilator 12/04/16 13:45 88 16 100 35 12/04/16 12:37 128 24 12/04/16 12:21 141 26 100 40 12/04/16 12:01 99.0 140 26 158/87 99 Physical Exam Const: Alert, increased work of breathing, able to communicate by nodding and mouthing words. Head: Atraumatic Eyes: Normal Conjunctiva, mild pallor, no icterus ENT: Normal External Ears, Nose and Mouth. Mucous membranes moist Neck: Full range of motion..~ No meningismus. Resp: Clear to auscultation bilaterally, slightly decreased breath sounds at right base, no wheezes or rales, mildly increased expiration time Cardio: Regular rhythm, tachycardia, no murmur Abd: Soft, non tender, non distended. Skin: No petechiae or rashes Back: No midline or flank tenderness Ext: No cyanosis, or edema Neur: Awake and alert, moves 4 extremities Psych: Normal Mood and Affect Result Diagram: 12/04/16 1230 12/04/16 1230 Results 24 hrs Laboratory Tests Test 12/04/16 12:30 12/04/16 13:00 12/04/16 14:15 12/04/16 14:20 White Blood Count 20.210^3/ul Red Blood Count 3.2610^6/ul Hemoglobin 10.4g/dl Hematocrit 32.2% Mean Corpuscular Volume 98.8fl Mean Corpuscular Hemoglobin 31.9pg Mean Corpuscular Hemoglobin Concent 32.3g/dl Red Cell Distribution Width 13.1% Platelet Count 61830^3/UL Mean Platelet Volume 9.5fl Neutrophils % 86.0% Lymphocytes % 6.2% Monocytes % 5.3% Eosinophils % 1.7% Basophils % 0.2% Nucleated Red Blood Cells % 0.0/100WBC Neutrophils # (Manual) 17.410^3/ul Lymphocytes # 1.310^3/ul Monocytes # 1.110^3/ul Eosinophils # 0.310^3/ul Basophils # 0.010^3/ul Nucleated Red Blood Cells # 0.010^3/ul Sodium Level 143mmol/L Potassium Level 4.7mmol/L Chloride Level 96mmol/L Carbon Dioxide Level 30mmol/L Anion Gap 22 Blood Urea Nitrogen 52mg/dl Creatinine 0.77mg/dl Glucose Level 106mg/dl Lactic Acid Level 1.0mmol/L 1.1mmol/L Calcium Level 10.9mg/dl Total Bilirubin 0.0mg/dl Direct Bilirubin 0.00mg/dl Indirect Bilirubin 0.0mg/dl Aspartate Amino Transf (AST/SGOT) 33IU/L Alanine Aminotransferase (ALT/SGPT) 29IU/L Alkaline Phosphatase 108IU/L Troponin I < 0.012ng/ml B-Type Natriuretic Peptide 220PG/ML Total Protein 8.4g/dl Albumin 4.1g/dl Globulin 4.30g/dl Albumin/Globulin Ratio 0.95 Prothrombin Time 13.8Sec Prothrombin Time Ratio 1.1 INR International Normalized Ratio 1.06 Activated Partial Thromboplast Time 34.2Sec Urine Color YELLOW Urine Clarity SLIGHTLY CLOUDY Urine pH 6.0 Urine Specific [facility] 1.014 Urine Ketones NEGATIVEmg/dL Urine Nitrite NEGATIVEmg/dL Urine Bilirubin NEGATIVEmg/dL Urine Urobilinogen NEGATIVEmg/dL Urine Leukocyte Esterase 2+[place]/ul Urine Microscopic RBC 87/HPF Urine Microscopic WBC 23/HPF Urine Squamous Epithelial Cells FEW/HPF Urine Bacteria FEW/HPF Urine Hemoglobin 3+mg/dL Urine Glucose NEGATIVEmg/dL Urine Total Protein 1+mg/dl Test 12/04/16 16:14 Lactic Acid Level 1.1mmol/L Current Medications Medications (Trade) Dose Ordered Sig/[place] Route PRN Reason Start Time Stop Time Status Last Admin Dose Admin Sodium Chloride 1550 ml 1,550 ml BOLUS OVER 2 HOURS STAT IV* 12/04/16 12:13 12/04/16 12:16 DC 12/04/16 13:13 Cefepime HCl (Maxipime 2gm/50 ml (Pmx)) 50 ml @ 100 mls/hr ONCE STAT IVPB 12/04/16 12:13 12/04/16 12:42 DC 12/04/16 13:12 Albuterol/ Ipratropium (Duoneb) 3 ml ONCE STAT HHN 12/04/16 12:15 12/04/16 12:16 DC 12/04/16 12:34 Methylprednisolone Sodium Succinate (Solu-Medrol) 125 mg ONCE ONCE IV 12/04/16 15:00 12/04/16 15:12 DC 12/04/16 15:46 Acetaminophen (Tylenol Liquid) 650 mg ONCE ONCE PEG 12/04/16 17:30 12/04/16 17:31 DC 12/04/16 17:13 Acetaminophen (Tylenol Liquid (Ped)) 160 mg STK-MED ONCE .ROUTE 12/04/16 17:10 12/04/16 17:11 DC Lorazepam (Ativan) 0.5 mg ONCE ONCE IV 12/04/16 17:30 12/04/16 17:31 DC 12/04/16 17:30 Procedures/MDM EKG read by me: Time 1153, rate 137 Rhythm: Sinus tachycardia [place]: Normal Intervals: Normal ST-T waves: no ischemic changes Ectopy: No Q-waves: No Impression: Sinus tachycardia without ischemia MDM: Patient is a 56-year-old female who is vent dependent with tracheostomy sent from long-term for 2 days of shortness of breath. She is currently being treated for pneumonia per report, and has had recurrent pneumonia. She is afebrile. She reports having symptoms suggestive of COPD exacerbation. She is also found to be tachycardic and has increased BUN, suggestive of dehydration. There is no evidence of significant anemia or GI bleed. Patient has significant leukocytosis and a persistent infiltrate on her chest x-ray. She was given IV fluids and a dose of cefepime. Her lactic acid is not elevated. Her heart rate resolved after receiving IV fluids, and after receiving nebulizer treatments, the patient states that her breathing feels fine. She denies significant chest pain and there are no ischemic changes on her EKG. There is no elevated troponin. I discussed the case with the patient' s primary doctor, Dr. Bassett, and he stated that he would see the patient in the long-term tomorrow and arrange for her to receive further antibiotics, IV fluids, steroids, and nebulizer treatments. Blood and respiratory cultures have been sent. The patient is well-appearing and relatively asymptomatic at the time of discharge. I believe she is stable for further treatment in the long-term. Departure Diagnosis: Primary Impression: COPD with acute exacerbation Additional Impressions: Dehydration Pneumonia Qualified Code: J18.1 - Pneumonia of right lower lobe due to infectious organism Condition: REYES Herrera MD Dec 04, 2016 12:40
[2016-12-04 12:49] LABS: BASOPHILS % 0.2 % (0.0-2.0); EOSINOPHILS # 0.3 10^3/ul (0.0-0.5); EOSINOPHILS % 1.7 % (0.0-7.0); HEMATOCRIT 32.2 % (37.0-47.0); HEMOGLOBIN 10.4 g/dl (12.0-16.0); LYMPHOCYTES # 1.3 10^3/ul (0.8-2.9); LYMPHOCYTES % 6.2 % (15.0-51.0); MEAN CORPUSCULAR HEMOGLOBIN 31.9 pg (29.0-33.0); MEAN CORPUSCULAR HGB CONC 32.3 g/dl (32.0-37.0); MEAN CORPUSCULAR VOLUME 98.8 fl (82.0-101.0); MEAN PLATELET VOLUME 9.5 fl (7.4-10.4); MONOCYTE # 1.1 10^3/ul (0.3-0.9); MONOCYTES % 5.3 % (0.0-11.0); PLATELET COUNT 340 10^3/UL (140-415); RED BLOOD COUNT 3.26 10^6/ul (4.20-5.40); RED CELL DISTRIBUTION WIDTH 13.1 % (11.5-14.5); WHITE BLOOD COUNT 20.2 10^3/ul (4.8-10.8)
[2016-12-04 13:08] LABS: ALANINE AMINOTRANSFERASE 29 IU/L (13-69); ALBUMIN 4.1 g/dl (3.3-4.9); ALBUMIN/GLOBULIN RATIO 0.95; ALKALINE PHOSPHATASE 108 IU/L (42-121); ANION GAP 22 (8-16); ASPARTATE AMINO TRANSFERASE 33 IU/L (15-46); BLOOD UREA NITROGEN 52 mg/dl (7-20); CALCIUM 10.9 mg/dl (8.4-10.2); CARBON DIOXIDE 30 mmol/L (21-31); CHLORIDE 96 mmol/L (97-110); CREATININE 0.77 mg/dl (0.44-1.00); GLUCOSE 106 mg/dl (70-220); POTASSIUM 4.7 mmol/L (3.5-5.1); SODIUM 143 mmol/L (135-144); TOTAL PROTEIN 8.4 g/dl (6.1-8.1)
--- NOTE | 2016-12-04 13:13 | RADRPT ---
PROCEDURE: XR Chest 1 View. CLINICAL INDICATION: Shortness of breath. TECHNIQUE: AP view of the chest was obtained. COMPARISON: June 04, 2016 FINDINGS: The cardiomediastinal silhouette is within normal limits. Tracheostomy tubeappears in grossly approp riate location. Diffuse mild interstitial prominence is seen in both lungs. Scattered atelectasis is noted in the bilateral lower lungs. No consolidations are identified. No pneumothorax is seen. Osseous structures are intact. IMPRESSION: Chronic mild interstitial prominence in both lungs. Scattered atelectasis in the bilateral lower lungs. RPTAT: AA .Shashank Gordon MD, MD Date Time Electronically viewed and signed by .Shashank Gordon MD, MD on 12/04/2016 13:13 .P/
[2016-12-04 13:19] LABS: B-TYPE NATRIURETIC PEPTIDE 220 PG/ML (0-125)
[2016-12-04 13:47] LABS: TROPONIN-I < 0.012 ng/ml (0.00-0.12)
[2016-12-04 13:53] LABS: PARTIAL THROMBOPLASTIN TIME 34.2 Sec (25.0-35.0)
[2016-12-04] MEDS ORDERED: ACET-2047 GTB (13:56)
[2016-12-04 13:57] LABS: INR 1.06; PROTIME 13.8 Sec (12.2-14.2); PT RATIO 1.1
[2016-12-04] MEDS ORDERED: LEVO750T25 GTB (13:57)
[2016-12-04] MEDS ORDERED: OMEP20CA16 GTB (13:57)
[2016-12-04 14:41] LABS: ADD UMIC YES; UR ASCORBIC ACID 40 mg/dL (NEGATIVE); UR BACTERIA FEW /HPF (NONE SEEN); UR BILIRUBIN (Dip) NEGATIVE (NEGATIVE); UR BLOOD (Dip) 3+ mg/dL (NEGATIVE); UR CLARITY SLIGHTLY CLOUDY (CLEAR); UR COLOR YELLOW (YELLOW); UR GLUCOSE (Dip) NEGATIVE (NEGATIVE); UR KETONES (Dip) NEGATIVE (NEGATIVE); UR LEUKOCYTE ESTERASE (Dip) 2+ Leu/ul (NEGATIVE); UR NITRITE (Dip) NEGATIVE (NEGATIVE); UR RBC 87 /HPF (0-5); UR SPECIFIC GRAVITY (Dip) 1.014 (1.003-1.030); UR SQUAMOUS EPITHELIAL CELL FEW /HPF (FEW); UR TOTAL PROTEIN (Dip) 1+ mg/dl (NEGATIVE); UR UROBILINOGEN (Dip) NEGATIVE (NEGATIVE)
[2016-12-04] MEDS ORDERED: METHYLPREDNISOLONE 125 MG INJ IV ONE (15:00)
[2016-12-04] MEDS ORDERED: ACET-2158 GTB (16:59)
[2016-12-04] MEDS ORDERED: ACETAMINOPHEN 160 MG/5ML CUP ONE (17:10)
[2016-12-04] MEDS ORDERED: LORAZEPAM 2 MG INJ IV ONE (17:30)
[2016-12-04] MEDS ORDERED: ACETAMINOPHEN 650MG/20.3ML CUP PEG ONE (17:30)
[2016-12-04 18:57] VITALS: BP 103/75; PULSE 94; RESP 22; TEMP 98.4
== END 2016-12-04 19:00 | disposition home or self-care (01) ==
LOC: E/R 11:43
DX: J44.1 Chronic obstructive pulmonary disease with (acute) exacerbation (principal); E86.0 Dehydration; J18.1 Lobar pneumonia, unspecified organism; Z87.891 Personal history of nicotine dependence
CPT/HCPCS: 36415; 71010; 80053; 81001; 83605; 83880; 84484; 85025; 85610; 85730; 86850; 86900; 86901; 87040; 93005; 94002; 94664; 96374; 96375; 99285; J0692; J2060; J2930; J7030

== ENCOUNTER 2017-04-10 17:48 | Inpatient (IN) | END 2017-04-15 18:20 | disposition short-term general hospital (02) | DRG 870 ==

== ENCOUNTER 2017-05-15 11:47 | Day surgery (SDC) | END 2017-05-15 15:45 ==

== ENCOUNTER 2017-05-19 10:27 | Day surgery (SDC) | END 2017-05-19 17:18 ==

== ENCOUNTER 2017-05-19 19:06 | Inpatient (IN) | END 2017-06-02 00:35 | disposition short-term general hospital (02) | DRG 870 ==